=== PATIENT | male | born 1940 | race Caucasian/White ===

== ENCOUNTER → 2016-10-16 | Outpatient (CLI) | payer BC ==
[~2016-10-16] MED LIST: LISI-461 PO; METR500T PO
[2016-10-16 12:26] LABS: HEMATOCRIT 43.6 % (42-52); MEAN CELL VOLUME 96.9 fL (80-100); MEAN CORPUSCULAR HEMOGLOBIN 32.7 pg (25-34); MEAN CORPUSCULAR HGB CONC 33.7 g/dl (32-36); MEAN PLATELET VOLUME 10.7 fL (7.4-10.4); PLATELET COUNT 241 K/uL (130-400); WHITE BLOOD COUNT 9.74 K/uL (4.8-10.8)
[2016-10-16 12:36] LABS: ALT/SGPT 18 U/L (12-78); BLOOD UREA NITROGEN 17 mg/dl (7-18); BUN/CREATININE RATIO 13.4 (10-20); CALCIUM 8.7 mg/dl (8.5-10.1); CARBON DIOXIDE 27 mmol/L (21-32); CHLORIDE 105 mmol/L (98-107); CHOLESTEROL 187 mg/dl (0-200); GLUCOSE 81 mg/dl (70-99); POTASSIUM 4.4 mmol/L (3.5-5.1); SODIUM 139 mmol/L (136-145)
[2016-10-16 12:44] LABS: ALB/GLOB RATIO 0.9 (0.9-2); ALKALINE PHOSPHATASE 62 U/L (45-117); AST/SGOT 17 U/L (15-37); CHOLESTEROL/HDL RATIO 3.3; HDL CHOLESTEROL 57 mg/dl; LDL CHOLESTEROL CALCULATED 111 mg/dl; TRIGLYCERIDES 97 mg/dl (0-150); VERY LOW DENSITY LIPOPROT CALC 19 mg/dl
== END | disposition home or self-care (01) ==
LOC: C.LABBFT 07:41
PROVIDERS: ATTEND Internal Medicine
DX: I10 Essential (primary) hypertension (principal); R97.20 Elevated prostate specific antigen [PSA]

== ENCOUNTER → 2017-04-23 | Outpatient (CLI) | payer BC ==
[2017-04-23 12:45] LABS: HEMATOCRIT 42.6 % (42-52); HEMOGLOBIN 14.5 g/dL (14.0-18.0); MEAN CELL VOLUME 98.2 fL (80-100); MEAN CORPUSCULAR HEMOGLOBIN 33.4 pg (25-34); MEAN PLATELET VOLUME 11.8 fL (7.4-10.4); PLATELET COUNT 124 K/uL (130-400); RED CELL DISTRIBUTION WIDTH CV 12.5 % (11.5-14.5); RED CELL DISTRIBUTION WIDTH SD 45.3 fL (36.4-46.3); WHITE BLOOD COUNT 7.36 K/uL (4.8-10.8)
[2017-04-23 13:08] LABS: ALBUMIN 3.4 gm/dl (3.4-5.0); ALT/SGPT 16 U/L (12-78); BLOOD UREA NITROGEN 23 mg/dl (7-18); CALCIUM 8.6 mg/dl (8.5-10.1); CARBON DIOXIDE 24 mmol/L (21-32); CHOLESTEROL 174 mg/dl (0-200); CREATININE 1.07 mg/dl (0.60-1.40); GLUCOSE 84 mg/dl (70-99); POTASSIUM 4.2 mmol/L (3.5-5.1); SODIUM 139 mmol/L (136-145)
[2017-04-23 13:09] LABS: ALKALINE PHOSPHATASE 65 U/L (45-117); AST/SGOT 15 U/L (15-37); LDL CHOLESTEROL CALCULATED 99 mg/dl; TOTAL PROTEIN 7.3 gm/dl (6.4-8.2)
== END | disposition home or self-care (01) ==
LOC: C.LABBFT 08:15
PROVIDERS: ATTEND Internal Medicine
DX: E78.5 Hyperlipidemia, unspecified (principal)

== ENCOUNTER → 2017-05-02 | Outpatient (CLI) | payer BC ==
[2017-05-02 13:01] LABS: HEMATOCRIT 42.4 % (42-52); HEMOGLOBIN 14.5 g/dL (14.0-18.0); MEAN CELL VOLUME 96.8 fL (80-100); MEAN CORPUSCULAR HEMOGLOBIN 33.1 pg (25-34); MEAN CORPUSCULAR HGB CONC 34.2 g/dl (32-36); MEAN PLATELET VOLUME 11.9 fL (7.4-10.4); PLATELET COUNT 184 K/uL (130-400); RED CELL DISTRIBUTION WIDTH CV 12.5 % (11.5-14.5); RED CELL DISTRIBUTION WIDTH SD 44.4 fL (36.4-46.3); WHITE BLOOD COUNT 6.09 K/uL (4.8-10.8)
[2017-05-02 13:02] LABS: BASO % 0.7 %; BASO ABS # 0.04 K/uL (0-0.2); EOS % 3.8 %; EOS ABS # 0.23 K/uL (0-0.5); IG# 0.02 K/uL (0.00-0.02); LYMPH % 32.7 %; LYMPH ABS # 1.99 K/uL (1.2-3.4); MONO % 9.7 %; MONO ABS # 0.59 K/uL (0.11-0.59); NEUT % 52.8 %; NEUT ABS # 3.22 K/uL (1.4-6.5)
== END | disposition home or self-care (01) ==
LOC: C.LABBFT 08:07
PROVIDERS: ATTEND Internal Medicine
DX: D69.6 Thrombocytopenia, unspecified (principal)

== ENCOUNTER → 2017-12-03 | Outpatient (CLI) | payer BC ==
[2017-12-03 12:27] LABS: BASO % 0.6 %; BASO ABS # 0.04 K/uL (0-0.2); EOS % 5.1 %; EOS ABS # 0.32 K/uL (0-0.5); HEMATOCRIT 44.6 % (42-52); IG# 0.02 K/uL (0.00-0.02); LYMPH % 31.2 %; LYMPH ABS # 1.96 K/uL (1.2-3.4); MEAN CORPUSCULAR HEMOGLOBIN 32.6 pg (25-34); MEAN CORPUSCULAR HGB CONC 33.6 g/dl (32-36); MONO % 9.7 %; MONO ABS # 0.61 K/uL (0.11-0.59); NEUT % 53.1 %; NEUT ABS # 3.34 K/uL (1.4-6.5); PLATELET COUNT 208 K/uL (130-400); RED CELL DISTRIBUTION WIDTH CV 12.8 % (11.5-14.5); RED CELL DISTRIBUTION WIDTH SD 45.4 fL (36.4-46.3); WHITE BLOOD COUNT 6.29 K/uL (4.8-10.8)
[2017-12-03 13:06] LABS: ALBUMIN 3.4 gm/dl (3.4-5.0); ALKALINE PHOSPHATASE 71 U/L (45-117); ALT/SGPT 20 U/L (12-78); AST/SGOT 16 U/L (15-37); BLOOD UREA NITROGEN 24 mg/dl (7-18); CALCIUM 8.2 mg/dl (8.5-10.1); CARBON DIOXIDE 25 mmol/L (21-32); CHOLESTEROL 188 mg/dl (0-200); CREATININE 1.31 mg/dl (0.60-1.40); GLUCOSE 91 mg/dl (70-99); LDL CHOLESTEROL CALCULATED 114 mg/dl; SODIUM 137 mmol/L (136-145); TOTAL PROTEIN 7.6 gm/dl (6.4-8.2)
== END | disposition home or self-care (01) ==
LOC: C.LABBFT 08:17
PROVIDERS: ATTEND Internal Medicine
DX: I10 Essential (primary) hypertension (principal)

== ENCOUNTER 2025-03-23 11:31 | Inpatient (IN) ==
--- NOTE | 2025-03-23 12:03 | Emergency Department Note ---
Impression & Plan Obstructed, uropathy, Elevated serum creatinine, MARGA (acute kidney injury) ED Provider Note NAME: USMAN PIMENTEL AGE: 85 SEX: M : 1940 ARRIVES VIA: Walk-In INFORMANT: Patient ED PROVIDER(S): Walter Piper DO CHIEF COMPLAINT: Urinating more frequently with overflow incontinence HPI: Patient is an 85-year-old male with a past medical history of CKD, MARGA and hypertension who presents to the ER for increased frequency of urination over the past month. He is also noticed some overflow incontinence. He denies all other complaints. No headache or change in vision. No chest pain or shortness of breath. No nausea, vomiting, or diarrhea. No dysuria, urgency, or frequency. No other exacerbating or remitting factors. ADDITIONAL HISTORY OBTAINED: Per HPI Chronic Medical/Social Conditions Affecting Care: Per HPI PAST MEDICAL HISTORY:See Below PAST SURGICAL HISTORY:See Below FAMILY HISTORY:See Below SOCIAL HISTORY:See Below HOME MEDICATIONS:See Below ALLERGIES:See Below VITALS:See Below PHYSICAL EXAMINATION: GENERAL: Sitting up in bed, alert, well appearing, well nourished, no distress, non-toxic EYE EXAM: normal conjunctiva. OROPHARYNX: no exudate, no erythema, lips, buccal mucosa, and tongue normal and mucous membranes are moist NECK: supple, no nuchal rigidity, no adenopathy, non-tender LUNGS: Clear to auscultation. Normal chest wall mechanics HEART: no murmurs, S1 normal and S2 normal ABDOMEN: abdomen soft, non-tender, normo-active bowel sounds, no masses, no rebound or guarding. BACK: Back is symmetrical on inspection and there is no deformity, no midline tenderness, no CVA tenderness. SKIN: no rashes and no bruising UPPER EXTREMITIES: upper extremities are grossly normal. LOWER EXTREMITIES: No pitting edema. NEURO EXAM: Normal sensorium, cranial nerves II-XII grossly intact, normal speech, no gross weakness of arms, no gross weakness of legs. MEDICAL DECISION MAKING: Patient is a 85-year-old male who presents ER for the above-stated complaint. IV was established and blood work was obtained. Labs show no significant leukocytosis. Mild anemia 11. BMP with a creatinine of 3 up from baseline of 1.8. LFTs bilirubin and lipase was unremarkable. UA was clean. External records were reviewed which showed distention of the bladder and bilateral hydronephrosis. Felder was placed. He did have significant pain following this and was given IV morphine. Discussed case with the hospitalist for further evaluation management treatment. Was given IV fluids. Consults/Care Managements Discussions: Per MDM Triage Nursing notes reviewed. Limited review of prior medical records performed Vital Signs: reviewed and remarkable for HTN Differential diagnosis: Differential diagnoses includes but is not limited to gastritis, peptic ulcer disease, GERD, gallbladder disease, pancreatitis, small bowel obstruction, appendicitis, diverticulitis, hernia, urinary tract infection, torsion, perforation, trauma, infectious. ER treatment provided: See below Diagnostics interpreted by me include EKG and cardiac monitoring as listed below: -Cardiac Monitoring: An order was placed for continuous cardiac monitoring. The monitor shows a rate of 90 with sinus rhythm. -ECG: none -Laboratory studies:Interpreted by me as stated above in MDM and shown below. Imaging studies: Xrays: As interpreted by me:none CTs show: none Procedures:none Critical Care: None Past Med/Surg History Problem List (Updated 03/23/25 @ 16:58 by Walter Piper DO) Obstructed, uropathy (Acute) Urinary retention Vitamin B12 deficiency anemia MARGA (acute kidney injury) (Acute) CKD stage 3b, GFR 30-44 ml/min Edema Hypertension Chronic gout involving toe with tophus Elevated serum creatinine (Chronic) Elevated fasting glucose (Chronic) Medical History Anemia Numbness and tingling in left hand Abrasion of right index finger, initial encounter Elevated PSA CKD (chronic kidney disease) stage 3, GFR 30-59 ml/min HTN (hypertension) Hearing deficit Arthritis History of diverticulosis Restless leg syndrome Surgical History Hx of left cataract extraction History of tooth extraction H/O colonoscopy (09/07/06) Family History Other No family history of adverse response to anesthesia No pertinent family history Denies family history of Ovarian cancer Prostate cancer Myocardial infarction Breast cancer Colorectal cancer Social History Smoking Status: Never smoker Tobacco Type: Pipe, Cigars and Smokeless Tobacco (Dip or Chew) Second Hand Exposure: No; Do You Dip or Chew Tobacco: Yes (ADVISED); Hx Alcohol Use: Yes Alcohol type: beer and hard liquor Hx Substance Use: No Preferred Language: Slovenian Communication Ability: Effective Visual Impairment: Limited Hearing Ability: Use of Hearing Aid Media Director Required: No Beliefs That Will Affect Care: None marital status: Current Living Situation: Spouse current occupational status: retired current occupation: Previously in [employer] Feels Safe at Home: Yes Childhood Exposure to Second-Hand Smoke: No Diet: regular caffeine: No during the past year weight has: remained stable Dental Care, Regularly: Yes Physical Activity Frequency: 1-2 Times per Week Seatbelt Use: always Sunscreen Use: Yes Assistive Devices: Cane, Denture - Upper, Denture - Lower, Glasses and Hearing Aid - Bilateral Allergies Allergies Allergy/AdvReac Type Severity Reaction Status Date / Time doxycycline Allergy Intermediate SWELLING Verified 03/19/25 14:54 IN GENITAL AREAS minocycline Allergy Intermediate SWELLING Verified 03/19/25 14:54 IN GENITAL AREAS tetracycline Allergy Intermediate SWELLING Verified 03/19/25 14:54 IN GENITALS cefuroxime AdvReac Mild Abdominal Verified 03/19/25 14:54 pain/diarrhea. Penicillins AdvReac Mild nausea Verified 03/19/25 14:54 Home Meds Previous Rx's Medication Instructions Recorded cyanocobalamin (vitamin B-12) 1,000 mcg PO DAILY #90 tabs 03/19/25 1,000 mcg tablet Results & Data (ED) Vital Signs Vital Signs - 24 hr 03/23/25 11:42 03/23/25 12:54 03/23/25 15:00 Temperature 36.6 C Temperature Source Temporal Artery Scan Pulse Rate 93 H 87 Pulse Rate [Apical] 91 H Respiratory Rate 18 18 Respiratory Effort / Characteristics Non-Labored Spontaneous Respiratory Depth Normal Respiratory Pattern Regular Blood Pressure 149/72 H Blood Pressure [Left Arm] 156/82 H Blood Pressure Mean 97 Blood Pressure Mean [Left Arm] 106 Pulse Oximetry 99 99 Oxygen Delivery Method Room Air Room Air Sepsis Recent Fever Within 48 Hours No Sepsis New/Unexplained Change in Mental Status No Sepsis Action Taken by Nursing No Action Required 03/23/25 16:39 Temperature Temperature Source Pulse Rate Pulse Rate [Apical] 85 Respiratory Rate 18 Respiratory Effort / Characteristics Respiratory Depth Respiratory Pattern Blood Pressure Blood Pressure [Left Arm] 148/73 H Blood Pressure Mean Blood Pressure Mean [Left Arm] 98 Pulse Oximetry 98 Oxygen Delivery Method Room Air Sepsis Recent Fever Within 48 Hours Sepsis New/Unexplained Change in Mental Status Sepsis Action Taken by Nursing Laboratory Data 03/23/25 12:13 03/23/25 12:13 Lab Results 03/23/25 Range/Units 12:13 WBC 8.80 (4.8-10.8) K/ul RBC 3.34 L (4.70-6.10) M/uL Hgb 11.0 L (14.0-18.0) g/dL Hct 33.4 L (42.0-52.0) % MCV 100.0 (80.0-100.0) fL MCH 32.9 (25.0-34.0) pg MCHC 32.9 (32.0-36.0) g/dL RDW Std Deviation 44.6 (36.4-46.3) fL RDW Coeff of Sravanthi 12.2 (11.5-14.5) % Plt Count 277 (130-400) K/uL MPV 10.8 (9.4-12.4) fL Immature Gran % (Auto) 0.2 % Neut % (Auto) 70.2 % Lymph % (Auto) 19.1 % [place] % (Auto) 9.0 % Eos % (Auto) 0.9 % Baso % (Auto) 0.6 % Neut # (Auto) 6.18 (1.40-6.50) K/uL Lymph # (Auto) 1.68 (1.20-3.40) K/uL [place] # (Auto) 0.79 H (0.11-0.59) K/uL Eos # (Auto) 0.08 (0.00-0.50) K/uL Baso # (Auto) 0.05 (0.00-0.20) K/uL Immature Gran # (Auto) 0.02 (0.01-0.20) K/uL Sodium 142 (136-145) mmol/L Potassium 4.3 (3.5-5.1) mmol/L Chloride 105 (98-107) mmol/L Carbon Dioxide 28 (21-32) mmol/L Anion Gap 9 (3-11) BUN 44 H (6-23) mg/dl Creatinine 3.02 H (0.6-1.4) mg/dl Est Cr Clr Drug Dosing 16.9 ml/min eGFR 19.46 BUN/Creatinine Ratio 14.6 (10-20) Glucose 89 (70-99(Fasting)) mg/dl Calcium 9.2 (8.6-10.3) mg/dl Total Bilirubin 0.3 (0.2-1.0) mg/dl AST 19 (13-39) U/L ALT 11 (7-52) U/L Alkaline Phosphatase 78 (34-104) U/L Total Protein 8.0 (6.0-8.3) gm/dl Albumin 4.4 (3.4-5.0) gm/dl Globulin 3.6 (2.5-4.0) gm/dl Albumin/Globulin Ratio 1.2 (0.9-2) Lipase 55 (11-82) U/L Urine Color Yellow Urine Appearance Clear (Clear) Urine pH 6.5 (4.5-7.5) Ur Specific [place] 1.009 (1.000-1.030) Urine Protein Negative (Negative) Urine Glucose (UA) Negative (Negative) Urine Ketones Negative (Negative) Urine Blood Negative (Negative) Urine Nitrite Negative (Negative) Urine Bilirubin Negative (Negative) Urine Urobilinogen Negative (Negative) Ur Leukocyte Esterase Negative (Negative) Urine Comment Administered Medications Discontinued Medications Sodium Chloride (Nss) 500 mls @ 999 mls/hr IV .Q31M ONE Stop: 03/23/25 13:40 Last Infusion: 03/23/25 14:29 Dose: Infused Documented By: Admin: 03/23/25 13:23 Dose: 999 mls/hr Documented By: QGV Morphine Sulfate (Morphine Sulfate 2 Mg/Ml Carp) 2 mg IV NOW STA Stop: 03/23/25 14:10 Last Admin: 03/23/25 14:12 Dose: 2 mg Documented By: QGV Morphine Sulfate (Morphine Sulfate 4 Mg/Ml 1 Ml Carp\Vial) 4 mg IV NOW STA Stop: 03/23/25 14:52 Last Admin: 03/23/25 15:00 Dose: 4 mg Documented By: [id number] Tamsulosin HCl (Tamsulosin Hcl 0.4 Mg Cap) 0.4 mg PO NOW ONE Stop: 03/23/25 15:40 Last Admin: 03/23/25 15:44 Dose: 0.4 mg Documented By: [id number] Imaging Data Radiologist's Impression: Venous Doppler Study 03/23/25 15:42 Clinical History: Edema Technique: Venous ultrasound evaluation was performed utilizing grayscale, color Doppler and wave form evaluation. Images were also obtained with and without compression Findings: The bilateral common femoral, superficial femoral, popliteal, and visualized calf veins demonstrate normal anechoic lumens with full compressibility. Normal flow is seen on color Doppler images. Expected waveforms were produced with augmentation maneuvers Impression: No evidence of deep venous thrombosis Electronically signed by Brady Loja 03-23-2025 4:33 PM Discharge Plan Visit Data Chief Complaint: Referred by Doctor Stated Complaint: REF BY DOC, REMOVE WATER FROM PROSTATE ED Provider: Walter Piper Discharge Problem: Obstructed, uropathy, Elevated serum creatinine, MARGA (acute kidney injury) Patient Disposition: Admitted As Inpatient Condition: Fair Discharge Instructions Interventions: ED Discharge Assessment Last Done: 03/23/25 16:40 Forms Stand Alone Forms: [employer] Prescriptions Prescriptions: No Action cyanocobalamin (vitamin B-12) 1,000 mcg tablet 1,000 mcg PO DAILY Qty: 90 3RF Referrals Referrals: David Trinidad DO [Primary Care Provider] -
[2025-03-23 12:41] LABS: Hematocrit (blood only) 33.4 % (42.0-52.0); Hemoglobin 11.0 g/dL (14.0-18.0); Immature Granulocytes # (auto) 0.02 K/uL (0.01-0.20); Immature Granulocytes % (auto) 0.2 %; Mean Corpuscular Hemoglobin 32.9 pg (25.0-34.0); Mean Corpuscular Volume 100.0 fL (80.0-100.0); Platelet Count 277 K/uL (130-400); RDW Standard Deviation 44.6 fL (36.4-46.3); Red Blood Count 3.34 M/uL (4.70-6.10); White Blood Count 8.80 K/ul (4.8-10.8)
[2025-03-23 12:51] LABS: Alanine Aminotransferase 11.0 U/L (7-52); Albumin Globulin Ratio 1.2 (0.9-2); Albumin Level 4.4 gm/dl (3.4-5.0); Alkaline Phosphatase 78.0 U/L (34-104); Anion Gap 9.0 (3-11); Appearance Urine Clear (Clear); Bilirubin,Total 0.3 mg/dl (0.2-1.0); Blood Urea Nitrogen 44.0 mg/dl (6-23); Calcium 9.2 mg/dl (8.6-10.3); Carbon Dioxide 28.0 mmol/L (21-32); Chloride 105.0 mmol/L (98-107); Creatinine Clr Calc Pharmacy 16.9 ml/min; Globulin 3.6 gm/dl (2.5-4.0); Glucose 89.0 mg/dl (70-99(Fasting)); Glucose Urine UA Negative (Negative); Lipase 55.0 U/L (11-82); Potassium 4.3 mmol/L (3.5-5.1); Sodium 142.0 mmol/L (136-145); Total Protein 8.0 gm/dl (6.0-8.3)
[2025-03-23] MEDS: SODIUM CHLORIDE 0.9% 500 ML IV ONE (13:23)
[2025-03-23] MEDS: MoRPHine SULFATE 2 MG/ML CARP IV STA (14:12)
[2025-03-23] MEDS: MoRPHine SULFATE 4 MG/ML 1 ML CARP\\VIAL IV STA (15:00)
--- NOTE | 2025-03-23 15:06 | History & Physical Report ---
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 His PCP got the results and advised the patient to come to the ED right away. He has been complaining of increased urinary frequency for the past 4 to 5 months, worse over the last 1 month. His renal function has recently been declining as an outpatient after he was started on some Lasix for ankle swelling. He was told to also stop taking his lisinopril last week. He denies chest pains or shortness of breath, no fevers or chills, no current issues with constipation. His creatinine in the ED was elevated at 3.0 fairly stable to improved from a few days prior. He had a Felder catheter placed for almost 2 L of urine. He will be admitted for acute kidney injury and urinary retention. #MARGA on CKD stage III/urinary retention/prostamegaly-MARGA likely secondary to urinary retention/postobstructive nephropathy. UA is without casts or protein, no signs of infection. He has been having gradually increasing nocturia and urinary frequency that was worsened more recently by taking furosemide. Likely a chronic issue with enlarged prostate. Felder catheter placed in the ED on 03/23. He was given 500 mL of normal saline. - Admit to medical floor with telemetry - Follow BMP in the a.m.-would expect renal failure to improve now that obstruction is resolved - Start tamsulosin 0.4 mg p.o. at bedtime - Plan for urology follow-up in 1-2 weeks for trial of void-keep Felder catheter in until that time - No need for IV fluids - Continue to hold home lisinopril, Lasix, and avoid nephrotoxins - Renally dose medications #HTN/lower extremity edema-patient associates starting allopurinol with his increased leg swelling although it is more likely secondary to the worsening renal failure over the last few months. Recent BNP was normal. No other evidence of heart failure on examination. BPs are a bit elevated but this could be secondary to pain and stress. He has also been off of his lisinopril for 1 week - Check bilateral lower extremity venous Dopplers for DVT - Treating renal failure as noted above - May need to add on amlodipine if needs antihypertensive agent - Add MONCHO hose for lower extremity edema - Check echo #Vitamin B12 deficiency anemia-recent B12 level low and hemoglobin low at 10-11 - Continue home vitamin B12 supplementation - Follow CBC - Follow-up with outpatient PCP #Gout-with recent acute gout attack earlier this year and then was placed on colchicine with improvement as he is now avoiding NSAIDs which typically work for his acute gout attacks. He is now off allopurinol as he thinks this caused him leg swelling - No acute issues at this time DVT prophylaxis-MONCHO hose, SCDs, heparin SQ Disposition-admit to medical floor with telemetry History of Present Illness Chief Complaint: Urinary retention Primary Care Provider: David Trinidad, DO This patient is an 85-year-old male with a history of CKD stage III, HTN, vitamin B12 deficiency anemia, and gout who presents to the ED after having a renal ultrasound as an outpatient which showed moderate-severe bilateral hydroureteronephrosis and a markedly distended bladder with a PVR of 1435 mL and prostamegaly. His PCP got the results and advised the patient to come to the ED right away. He has been complaining of increased urinary frequency for the past 4 to 5 months, worse over the last 1 month. His renal function has recently been declining as an outpatient after he was started on some Lasix for ankle swelling. He was told to also stop taking his lisinopril last week. He denies chest pains or shortness of breath, no fevers or chills, no current issues with constipation. His creatinine in the ED was elevated at 3.0 fairly stable to improved from a few days prior. He had a Felder catheter placed for almost 2 L of urine. He will be admitted for acute kidney injury and urinary retention. Allergies Allergy/AdvReac Type Severity Reaction Status Date / Time doxycycline Allergy Intermediate SWELLING Verified 03/19/25 14:54 IN GENITAL AREAS minocycline Allergy Intermediate SWELLING Verified 03/19/25 14:54 IN GENITAL AREAS tetracycline Allergy Intermediate SWELLING Verified 03/19/25 14:54 IN GENITALS cefuroxime AdvReac Mild Abdominal Verified 03/19/25 14:54 pain/diarrhea. 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 Edema Hypertension Chronic gout involving toe with tophus Elevated serum creatinine (Chronic) Elevated fasting glucose (Chronic) Medical History Anemia Numbness and tingling in left hand Abrasion of right index finger, initial encounter Elevated PSA CKD (chronic kidney disease) stage 3, GFR 30-59 ml/min HTN (hypertension) Hearing deficit Arthritis History of diverticulosis Restless leg syndrome Surgical History Hx of left cataract extraction History of tooth extraction H/O colonoscopy (09/07/06) Family History Other No family history of adverse response to anesthesia No pertinent family history Denies family history of Ovarian cancer Prostate cancer Myocardial infarction Breast cancer Colorectal cancer Social History Smoking Status: Never smoker Tobacco Type: Pipe, Cigars and Smokeless Tobacco (Dip or Chew) Second Hand Exposure: No; Do You Dip or Chew Tobacco: Yes (ADVISED); Hx Alcohol Use: Yes Alcohol type: beer and hard liquor Hx Substance Use: No Preferred Language: Thai Communication Ability: Effective Visual Impairment: Limited Hearing Ability: Use of Hearing Aid Bending Machine Operator Required: No Beliefs That Will Affect Care: None marital status: Current Living Situation: Spouse current occupational status: retired current occupation: Previously in [employer] Feels Safe at Home: Yes Childhood Exposure to Second-Hand Smoke: No Diet: regular caffeine: No during the past year weight has: remained stable Dental Care, Regularly: Yes Physical Activity Frequency: 1-2 Times per Week Seatbelt Use: always Sunscreen Use: Yes Assistive Devices: Cane, Denture - Upper, Denture - Lower, Glasses and Hearing Aid - Bilateral Review of Systems Review of Systems: All systems reviewed & are unremarkable except as noted in HPI & below Physical Exam Constitutional: WD/WN, vitals as above Eyes: PERRL, conjunctivae normal, anicteric sclerae Neck: trachea midline, no thyromegaly Respiratory: normal respiratory effort, lungs clear to auscultation Cardiovascular: Rate/Rhythm: regular rate and regular rhythm Heart Sounds: no murmur Extremities: + edema (1+ pitting edema of the feet and ankles to the knees bilaterally) Chest (Breasts): Chest: normal inspection of chest Gastrointestinal (Abdomen): normal bowel sounds, soft, nontender, no hepatosplenomegaly Musculoskeletal: Extremities: extremities normal to inspection; no cyanosis and no clubbing Skin: no rashes, warm and dry Neurologic: moves all extremities and awake; no focal motor deficits Psychiatric: A+Ox3, euthymic affect Genitourinary: + penis abnormality (Felder catheter in p lace draining pink- tinged urine) Lymphatic: no lymphedema Results & Data Results & Data Vital Signs (Past 12 Hours) Vital Signs Temp Pulse Resp BP Pulse Ox O2 Del Method 03/23/25 12:54 87 03/23/25 11:42 36.6 C 93 H 18 149/72 H 99 Room Air Laboratory Results CBC, CMP, lipase, UA reviewed Diagnostic Findings Renal ultrasound reviewed CXR reviewed Code Status & VTE Plan Code Status Full code VTE Prophylaxis Plan VTE Prophylaxis will be ordered: Yes PG Care Time/CCT Total # of Minutes Spent Total Time Spent with Patient: Total time spent is greater than 50% in coordination of care (as documented) at patient's floor/unit and/or counseling patient: Coding Level of Care Code 63432 INT INP/OBS CARE 3/75MIN Diagnoses MARGA (acute kidney injury) N17.9 Urinary retention R33.9 CKD stage 3b, GFR 30-44 ml/min N18.32 Hypertension I10
[2025-03-23] MEDS: TAMSULOSIN HCL 0.4 MG CAP PO ONE (15:44)
--- NOTE | 2025-03-23 16:33 | Ultrasound Report ---
Clinical History: Edema Technique: Venous ultrasound evaluation was performed utilizing grayscale, color Doppler and wave form evaluation. Images were also obtained with and without compression Findings: The bilateral common femoral, superficial femoral, popliteal, and visualized calf veins demonstrate normal anechoic lumens with full compressibility. Normal flow is seen on color Doppler images. Expected waveforms were produced with augmentation maneuvers Impression: No evidence of deep venous thrombosis Electronically signed by Brady Loja 03-23-2025 4:33 PM
[2025-03-23] MEDS ORDERED: POLYETHYLENE (MIRALAX) 17 GM PACK PO PRN (17:02)
[2025-03-23] MEDS ORDERED: ONDANSETRON INJ 2 MG/ML 2 ML VIAL IV PRN (17:02)
[2025-03-23] MEDS: ACETAMINOPHEN 325 MG TAB PO PRN (20:36)
[2025-03-23] MEDS: HEPARIN SOD 5,000 UNIT/0.5 ML VIAL SQ SCH (20:38)
[2025-03-23] MEDS: PHENAZOPYRIDINE HCL 100 MG TAB PO PRN (22:17)
[2025-03-24 08:05] LABS: Hematocrit (blood only) 28.4 % (42.0-52.0); Hemoglobin 9.7 g/dL (14.0-18.0); Immature Granulocytes # (auto) 0.02 K/uL (0.01-0.20); Immature Granulocytes % (auto) 0.3 %; Mean Corpuscular Hemoglobin 33.9 pg (25.0-34.0); Mean Corpuscular Volume 99.3 fL (80.0-100.0); Platelet Count 207 K/uL (130-400); RDW Standard Deviation 44.2 fL (36.4-46.3); Red Blood Count 2.86 M/uL (4.70-6.10); White Blood Count 7.24 K/ul (4.8-10.8)
[2025-03-24] MEDS: CYANOCOBALAMIN (B-12) 500 MCG TABLET PO SCH (08:24)
[2025-03-24 08:29] LABS: Anion Gap 7.0 (3-11); Blood Urea Nitrogen 40.0 mg/dl (6-23); Calcium 8.7 mg/dl (8.6-10.3); Carbon Dioxide 26.0 mmol/L (21-32); Chloride 108.0 mmol/L (98-107); Creatinine Clr Calc Pharmacy 16.5 ml/min; Glucose 122.0 mg/dl (70-99(Fasting)); Magnesium 1.8 mg/dl (1.7-2.4); Potassium 4.8 mmol/L (3.5-5.1); Sodium 141.0 mmol/L (136-145)
[2025-03-24 15:14] VITALS: RESP 16; TEMP 97.7; O2SAT 97
[2025-03-24 15:26] LABS: Anion Gap 7.0 (3-11); Blood Urea Nitrogen 41.0 mg/dl (6-23); Calcium 9.1 mg/dl (8.6-10.3); Carbon Dioxide 26.0 mmol/L (21-32); Chloride 106.0 mmol/L (98-107); Creatinine Clr Calc Pharmacy 16.9 ml/min; Glucose 148.0 mg/dl (70-99(Fasting)); Potassium 4.6 mmol/L (3.5-5.1); Sodium 139.0 mmol/L (136-145)
--- NOTE | 2025-03-24 16:41 | XCELERA ---
[id number]
--- NOTE | 2025-03-24 16:50 | Discharge Summary ---
Discharge Summary Date of Service March 24, 2025 Principal Dx & Hospital Course #1 = Principal Diagnosis (1) MARGA (acute kidney injury): (2) Urinary retention: (3) CKD stage 3b, GFR 30-44 ml/min: (4) Hypertension: Plan This patient is an 85-year-old male with a history of CKD stage III, HTN, vitamin B12 deficiency anemia, and gout who presents to the ED after having a renal ultrasound as an outpatient which showed moderate-severe bilateral hydroureteronephrosis and a markedly distended bladder with a PVR of 1435 mL and prostamegaly. His PCP got the results and advised the patient to come to the ED right away. He has been complaining of increased urinary frequency for the past 4 to 5 months, worse over the last 1 month. His renal function has recently been declining as an outpatient after he was started on some Lasix for ankle swelling. He was told to also stop taking his lisinopril last week. He denies chest pains or shortness of breath, no fevers or chills, no current issues with constipation. His creatinine in the ED was elevated at 3.0 fairly stable to improved from a few days prior. He had a Felder catheter placed for almost 2 L of urine. He was admitted for acute kidney injury and urinary retention. #MARGA on CKD stage III/urinary retention/prostamegaly-MARGA likely secondary to urinary retention/postobstructive nephropathy. UA is without casts or protein, no signs of infection. He has been having gradually increasing nocturia and urinary frequency that was worsened more recently by taking furosemide. Likely a chronic issue with enlarged prostate. Felder catheter placed in the ED on 03/23. He was given 500 mL of normal saline. He was admitted and had over 7 L of output of urine in 24 hours. His lower extremity edema was completely resolved by the day of discharge. His creatinine improved to 2.77. - Started tamsulosin 0.4 mg p.o. at bedtime - Plan for urology follow-up in 1-2 weeks for trial of void-keep Felder catheter in until that time-discussed with urology ANTONIO who will get appointment arranged as an outpatient - Continue to hold home lisinopril, Lasix, and avoid nephrotoxins - Renally dose medications - Check BMP as an outpatient in 2 weeks-Rx given with results to be sent to PCP #HTN/lower extremity edema-patient associates starting allopurinol with his increased leg swelling although it is more likely secondary to the worsening renal failure over the last few months. Recent BNP was normal. No other evidence of heart failure on examination. BPs are a bit elevated but this could be secondary to pain and stress. He has also been off of his lisinopril for 1 week. Echocardiogram with preserved EF 55-60%, no regional WMAs, moderate LVH, and moderate pulm HTN with RVSP 51 mmHg. Bilateral lower extremity venous Dopplers negative for DVT. Lower extremity edema now completely resolved after tremendous urine output after Felder catheter placed. BPs now normalized -If needs antihypertensive as an outpatient, would consider adding amlodipine -With right sided heart failure/pulm DRM-tvmtmy-hn with PCP as an outpatient #Vitamin B12 deficiency anemia-recent B12 level low and hemoglobin low at 10-11, dropped to 9.7 - Continue home vitamin B12 supplementation - Follow-up with outpatient PCP #Gout-with recent acute gout attack earlier this year and then was placed on colchicine with improvement as he is now avoiding NSAIDs which typically work for his acute gout attacks. He is now off allopurinol as he thinks this caused him leg swelling - No acute issues at this time DVT prophylaxis-MONCHO fonseca, SCDs, heparin SQ Disposition-stable for discharge to home Notes For Next Care Provider Follow-up results of BMP on 03/26 Outpatient urology follow-up is to be arranged by urology for trial of void Medication Changes From Visit See medication list Admission HPI Per Admitting Provider This patient is an 85-year-old male with a history of CKD stage III, HTN, vitamin B12 deficiency anemia, and gout who presents to the ED after having a renal ultrasound as an outpatient which showed moderate-severe bilateral hy droureteronephrosis and a markedly distended bladder with a PVR of 1435 mL and prostamegaly. His PCP got the results and advised the patient to come to the ED right away. He has been complaining of increased urinary frequency for the past 4 to 5 months, worse over the last 1 month. His renal function has recently been declining as an outpatient after he was started on some Lasix for ankle swelling. He was told to also stop taking his lisinopril last week. He denies chest pains or shortness of breath, no fevers or chills, no current issues with constipation. His creatinine in the ED was elevated at 3.0 fairly stable to improved from a few days prior. He had a Felder catheter placed for almost 2 L of urine. He will be admitted for acute kidney injury and urinary retention. Discharge Exam Constitutional WD/WN, vitals as above Respiratory normal respiratory effort, lungs clear to auscultation Cardiovascular Rate/Rhythm: regular rate and regular rhythm Heart Sounds: no murmur Extremities: no edema Chest (Breasts) Chest: normal inspection of chest Gastrointestinal (Abdomen) normal bowel sounds, soft, nontender, no hepatosplenomegaly Musculoskeletal Extremities: extremities normal to inspection; no cyanosis and no clubbing Skin no rashes, warm and dry Neurologic moves all extremities and awake; no focal motor deficits Psychiatric A+Ox3, euthymic affect Discharge Plan Discharge Items Patient Disposition: Home - Self-Care Reason For Visit: MARGA, URINARY RETENTION Discharge Diagnosis: Acute kidney injury Urinary retention Condition on Discharge: Good Activity: Resume your previous activity Non-emergency contact: Primary Care Provider and Urologist Call non-emergency contact if: you have any medication questions and your symptoms worsen Follow-up/Referrals: Lance Conti MD [Physician] - (The urology office will contact you with your appointment date and time for within 1-2 weeks.) David Trinidad DO [Primary Care Provider] - 04/03/25 1:00 pm (Follow-up within 1-2 weeks) Diet: Regular Ambulatory Orders: Basic Metabolic Panel (Routine) Timeframe: 2 Days Location: Determined by Patient Ordered By: Gillian Hernandez Attending Provider Instructions: You were admitted with acute kidney injury secondary to retention of urine from an enlarged prostate. You had a Felder catheter placed which was successful and draining large amounts of urine. This improved your leg swelling as well. The Felder catheter will need to remain in place until you see the urologist in their office to determine if it can successfully be removed. You were started on a new medication called tamsulosin (Flomax) to help shrink your prostate to allow the urine to flow out. This medication can sometimes cause lightheadedness with standing. Please get up slowly and pump the muscles in your legs before standing or walking. If you feel lightheaded, please lie back down flat. You will need to have a repeat blood test of your kidney function in 2 days-this has been ordered for you through the [facility] lab system. The results will be sent to your primary care physician. It was a pleasure taking care of you! If you have any questions about your care before your hospital follow-up visit with your primary care provider, please call [phone] and ask to be transferred to the [facility] Medicine office. Sincerely, Gillian Domingo M.D. Pending Studies at Discharge: No Stand-Alone Forms: My [facility] Medications and DC Order Prescriptions: New tamsulosin 0.4 mg Capsule 0.4 mg PO HS Qty: 30 0RF phenazopyridine [Pyridium] 100 mg Tablet 100 mg PO TID PRN (Reason: bladder pain) Qty: 15 0RF Continued cyanocobalamin (vitamin B-12) 1,000 mcg tablet 1,000 mcg PO DAILY Qty: 90 3RF Discharge Orders: Discharge Order (Routine); Ordered 03/24/25 Ordered By: Gillian Domingo Admission Data Admit Date/Time: 03/23/25 15:21 Attending Provider: Gillian Domingo Admit Provider: Gillian Domingo Primary Care Provider: David Trinidad Other Providers: Gillian Domingo Other Interventions: Discharge Summary Assessment (RN) Last Done: 03/24/25 16:55 Hospital Stay Data Consultations 03/23/25 13:09 ED Decision to Admit Stat Diagnostic Imagining Performed 03/23/25 15:42 US venous doppler LE BI Stat Echocardiogram Pending Results Patient Have Any Pending Studies at Discharge: No Discharge Instructions Given to Patient (Per Discharging Provider) You were admitted with acute kidney injury secondary to retention of urine from an enlarged prostate. You had a Felder catheter placed which was successful and draining large amounts of urine. This improved your leg swelling as well. The Felder catheter will need to remain in place until you see the urologist in their office to determine if it can successfully be removed. You were started on a new medication called tamsulosin (Flomax) to help shrink your prostate to allow the urine to flow out. This medication can sometimes cause lightheadedness with standing. Please get up slowly and pump the muscles in your legs before standing or walking. If you feel lightheaded, please lie back down flat. You will need to have a repeat blood test of your kidney function in 2 days-this has been ordered for you through the [facility] lab system. The results will be sent to your primary care physician. It was a pleasure taking care of you! If you have any questions about your care before your hospital follow-up visit with your primary care provider, please call [phone] and ask to be transferred to the [facility] Medicine office. Sincerely, Gillian Domingo M.D. Total Time Total Time Spent Total Time Spent (In Minutes): 35 minutes Total Time Includes: Examination of the Patient, Discharge Planning and Medication Reconciliation Coding Level of Care Code 30335 INP/OBS DISCH >30 MIN Diagnoses MARGA (acute kidney injury) N17.9 Urinary retention R33.9 CKD stage 3b, GFR 30-44 ml/min N18.32 Hypertension I10
[2025-03-24 17:01] VITALS: BP 116/81; PULSE 87
[2025-03-24] MEDS ORDERED: TAMSULOSIN HCL 0.4 MG CAP PO SCH (21:00)
== END 2025-03-24 17:56 | disposition home or self-care (01) | DRG 683 ==
LOC: ED 11:31 → 2N 15:21